=== PATIENT | male | born 1970 | race Hispanic/Latino ===

== ENCOUNTER 2017-04-08 20:47 | Emergency (ER) | payer SELFPAY ==
[2017-04-08] MEDS ORDERED: Sodium Chloride 0.9% 1,000 ML IV ONE (21:12)
[2017-04-08] MEDS ORDERED: Ketorolac 30 MG/ML SDV IVPUSH ONE (21:14)
--- NOTE | 2017-04-08 21:23 | EDM.PDOC ---
ED HPI GENERAL MEDICAL PROBLEM - General Chief Complaint: Abdominal Pain Stated Complaint: PT HAS STOMACH PAINS Time Seen by Provider: 04/08/17 21:20 Source of Information: Reports: Patient History Limitations: Reports: No Limitations - History of Present Illness INITIAL COMMENTS - FREE TEXT/NARRATIVE: History of present illness: 46-year-old male comes in complaining of bilateral lower back pain. Patient denies trauma and/or any injury indicates that he has had increasing difficulty with voiding and he feels like he is forcing the urine stream again some nature of an obstruction. Patient is somewhat of a poor historian and is unable to indicate whether or not he has had his appendix and/or gallbladder removed. Review of systems: As per history of present illness and below otherwise all systems reviewed and negative. Past medical history: As per history of present illness and as reviewed below otherwise noncontributory. Surgical history: As per history of present illness and as reviewed below otherwise noncontributory. Social history: No reported history of drug or alcohol abuse. Family history: As per history of present illness and as reviewed below otherwise noncontributory. Physical exam: HEENT: Atraumatic, normocephalic, pupils reactive, negative for conjunctival pallor or scleral icterus, mucous membranes moist, throat clear, neck supple, nontender, trachea midline. Lungs: Lung sounds diminished throughout otherwise breath sounds are equal bilaterally, chest nontender. Heart: S1S2, regular, negative for clicks, rubs, or JVD. Abdomen: Protuberant distended slightly firm and nonspecifically tender. Negative for masses or hepatosplenomegaly. Positive for costovertebral tenderness. Pelvis: Stable nontender. Genitourinary: Deferred. Rectal: Deferred. Extremities: Atraumatic, negative for cords or calf pain. Neurovascular unremarkable. Neuro: Awake, alert, oriented. Cranial nerves II through XII unremarkable. Cerebellum unremarkable. Motor and sensory unremarkable throughout. Exam nonfocal. Diagnostics: [CT of abdomen without contrast CBC, CMP, UA] Therapeutics: [IV fluid, Toradol, Zofran] Impression: [Right lower lobe pneumonia, back pain, UTI] Plan: [Levaquin, culture urine, follow up with PCP] Definitive disposition and diagnosis as appropriate pending reevaluation and review of above. abdomen Pain Score (Numeric/FACES): 9 - Related Data Allergies Allergy/AdvReac Type Severity Reaction Status Date / Time No Known Allergies Allergy Verified 04/08/17 20:54 Home Meds: Home Meds . [No Known Home Meds] 04/08/17 [History] Past Medical History - Past Health History Medical/Surgical History: Denies Medical/Surgical History Social & Family History - Family History Family Medical History: Noncontributory - Tobacco Use Smoking Status *Q: Never Smoker - Caffeine Use Caffeine Use: Reports: Coffee Caffeine Use Comment: occasional - Recreational Drug Use Recreational Drug Use: No ED ROS GENERAL - Review of Systems Review Of Systems: See Below (See history of present illness) ED EXAM, GI/ABD - Physical Exam Exam: See Below (See history of present illness) Course - Vital Signs Last Recorded V/S: Last Vital Signs Temp 37.3 C 04/08/17 20:55 Pulse 104 H 04/08/17 20:55 Resp 18 04/08/17 20:55 BP 180/105 H 04/08/17 20:55 Pulse Ox 95 04/08/17 20:55 - Orders/Labs/Meds Orders: Active Orders 24 hr Category Date Time Status Abdomen Pelvis wo Cont [CT] Stat Exams 04/08/17 21:09 Ordered Chest 2V [CR] Stat Exams 04/08/17 21:30 Ordered CULTURE URINE [RM] Stat Lab 04/08/17 21:51 Uncollected Labs: Laboratory Tests 04/08/17 04/08/17 04/08/17 Range/Units 21:10 21:10 21:15 WBC 9.28 (4.0-11.0) K/uL RBC 5.26 (4.50-5.90) M/uL Hgb 15.4 (13.0-17.0) g/dL Hct 44.1 (38.0-50.0) % MCV 83.8 (80.0-98.0) fL MCH 29.3 (27.0-32.0) pg MCHC 34.9 (31.0-37.0) g/dL RDW Std Deviation 40.6 (28.0-62.0) fl RDW Coeff of Kai 13 (11.0-15.0) % Plt Count 196 (150-400) K/uL MPV 10.70 (7.40-12.00) fL Neut % (Auto) 71.3 (48.0-80.0) % Lymph % (Auto) 18.5 (16.0-40.0) % Turner % (Auto) 9.1 (0.0-15.0) % Eos % (Auto) 1.0 (0.0-7.0) % Baso % (Auto) 0.1 (0.0-1.5) % Neut # (Auto) 6.6 H (1.4-5.7) K/uL Lymph # (Auto) 1.7 (0.6-2.4) K/uL Turner # (Auto) 0.8 (0.0-0.8) K/uL Eos # (Auto) 0.1 (0.0-0.7) K/uL Baso # (Auto) 0.0 (0.0-0.1) K/uL Nucleated RBC % 0.0 /100WBC Nucleated RBCs # 0 K/uL Sodium 137 (136-146) mmol/L Potassium 4.2 (3.5-5.1) mmol/L Chloride 105 (98-110) mmol/L Carbon Dioxide 21 (21-31) mmol/L BUN 16 (6.0-23.0) mg/dL Creatinine 1.2 (0.6-1.5) mg/dL Est Cr Clr Drug Dosing 70.15 mL/min Estimated GFR (MDRD) > 60.0 ml/min Glucose 103 (60-110) mg/dL Calcium 9.4 (8.8-10.8) mg/dL Total Bilirubin 1.0 (0.1-1.5) mg/dL AST 14 (5-40) IU/L ALT 23 (8-54) IU/L Alkaline Phosphatase 99 (40-150) Total Protein 8.3 H (6.0-8.0) g/dL Albumin 4.1 (3.5-5.0) g/dL Globulin 4.2 H (2.0-3.5) g/dL Albumin/Globulin Ratio 1.0 L (1.3-2.8) Urine Color YELLOW Urine Appearance CLEAR Urine pH 6.0 (5.0-8.0) Ur Specific Ke[place] >= 1.030 (1.001-1.035) Urine Protein 30 (NEGATIVE) mg/dL Urine Glucose (UA) NEGATIVE (NEGATIVE) mg/dL Urine Ketones NEGATIVE (NEGATIVE) mg/dL Urine Occult Blood LARGE H (NEGATIVE) Urine Nitrite NEGATIVE (NEGATIVE) Urine Bilirubin SMALL H (NEGATIVE) Urine Ictotest NEGATIVE Urine Urobilinogen 2.0 H (<2.0) EU/dL Ur Leukocyte Esterase TRACE (NEGATIVE) Urine RBC 1-3 (0-2/HPF) Urine WBC 8-15 (0-5/HPF) Ur Epithelial Cells RARE (NONE-FEW) Urine Bacteria FEW (NEGATIVE) Urine Mucus MODERATE (NONE-MOD) Meds: Medications Discontinued Medications Generic Name Dose Route Start Last Admin Trade Name Teresa PRN Reason Stop Dose Admin Sodium Chloride 1,000 mls @ 999 mls/hr 04/08/17 21:12 04/08/17 21:18 Normal Saline IV 04/08/17 22:12 999 mls/hr STAT ONE Administration Ketorolac Tromethamine 30 mg 04/08/17 21:14 04/08/17 21:19 Toradol IVPUSH 04/08/17 21:15 30 mg ONETIME ONE Administration Ondansetron HCl 4 mg 04/08/17 21:25 Zofran IVPUSH 04/08/17 21:26 ONETIME ONE Departure - Departure Time of Disposition: 22:17 Disposition: Home, Self-Care 01 Condition: Good Clinical Impression: Pneumonia, Back pain - Discharge Information Forms: ED Department Discharge Additional Instructions: The following information is given to patients seen in the emergency department who are being discharged to home. This information is to outline your options for follow-up care. We provide all patients seen in our emergency department with a follow-up referral. The need for follow-up, as well as the timing and circumstances, are variable depending upon the specifics of your emergency department visit. If you don't have a primary care physician on staff, we will provide you with a referral. We always advise you to contact your personal physician following an emergency department visit to inform them of the circumstance of the visit and for follow-up with them and/or the need for any referrals to a consulting specialist. The emergency department will also refer you to a specialist when appropriate. This referral assures that you have the opportunity for follow-up care with a specialist. All of these measure are taken in an effort to provide you with optimal care, which includes your follow-up. Under all circumstances we always encourage you to contact your private physician who remains a resource for coordinating your care. When calling for follow-up care, please make the office aware that this follow-up is from your recent emergency room visit. If for any reason you are refused follow-up, please contact the [facility] Emergency Department at and asked to speak to the emergency department charge nurse. Take medication as directed Follow-up with PCP 1-2 days Return to ED as needed as discussed [facility] [address] [place] [id number] - My Orders Last 24 Hours: My Active Orders 04/08/17 21:09 Abdomen Pelvis wo Cont [CT] Stat 04/08/17 21:30 Chest 2V [CR] Stat 04/08/17 21:51 CULTURE URINE [RM] Stat - Assessment/Plan Last 24 Hours: My Active Orders 04/08/17 21:09 Abdomen Pelvis wo Cont [CT] Stat 04/08/17 21:30 Chest 2V [CR] Stat 04/08/17 21:51 CULTURE URINE [RM] Stat
[2017-04-08] MEDS ORDERED: Ondansetron 4 MG/2 ML SDV IVPUSH ONE (21:25)
[2017-04-08 21:40] LABS: CHLORIDE,CL 105 mmol/L (98-110); SODIUM,NA 137 mmol/L (136-146)
[2017-04-09 03:40] VITALS: BP 137/88
--- NOTE | 2017-04-10 16:05 | CR ---
EXAM DATE: 04/08/17 PATIENT'S AGE: 46 Patient: BRAYDEN BOWER Facility: [place], [place] Site . Site : 1970 Study: XRay Chest [id number]/1/2017 9:42:48 PM Ordering Physician: Doctor Kendall Final Report: CLINICAL INDICATION: Right posterior chest pain for 3 days. Fatigued with activity. Findings : There is pleural-based alveolar infiltrate within the right lower lobe consistent with pneumonia. The left lung is clear. The heart is normal in size. The pulmonary vasculature and pleural surfaces are unremarkable. Impression: There is an alveolar infiltrate within the right lower lobe consistent with pneumonia. Radiographic followup to total resolution is recommended. Dictated by Pavan Benitez MD @ Apr 08 2017 10:01PM (Electronic Signature) Report Signed by Proxy. SNEHA
--- NOTE | 2017-04-10 16:05 | CT ---
EXAM DATE: 04/08/17 PATIENT'S AGE: 46 Patient: BRAYDEN BOWER Facility: [place], [place] Site . Site : 1970 Study: CT Abdomen/Pelvis [id number]/1/2017 9:52:30 PM Ordering Physician: Doctor Kendall Final Report: Clinical indication : Right flank pain 3 days. Technique: Axial noncontrast CT cuts were performed from above the diaphragm to the ischial tuberosities. Findings: There is an incompletely visualized pleural-based alveolar infiltrate within the right lower lobe that most likely represents pneumonia. There are no renal, ureteral or bladder calculi. There is no hydronephrosis. The urinary bladder, seminal vesicles and prostate gland appear normal. There is moderate diffuse fatty infiltration of the liver. The spleen pancreas and adrenal glands appear normal. There is no free intraperitoneal air or fluid. The colon and small bowel appear normal. The appendix is not inflamed. There are no enlarged retroperitoneal, mesenteric, iliac or inguinal lymph nodes. Impression: 1. There is an incompletely visualized pleural-based alveolar infiltrate within the right lower lobe that most likely represents pneumonia. If there is clinical suspicion of pulmonary embolism, PE protocol chest CT is suggested. 2. Moderate fatty infiltration of the liver. 3. Negative for urinary tract calculi. Please note that all CT scans at this facility use dose modulation, iterative reconstruction, and/or weight-based dosing when appropriate to reduce radiation dose to as low as reasonably achievable. Dictated by Pavan Benitez MD @ Apr 08 2017 10:18PM (Electronic Signature) Report Signed by Proxy. SNEHA
== END 2017-04-08 22:33 | disposition home or self-care (01) ==
LOC: MW.ED 20:47
DX: J18.9 Pneumonia, unspecified organism (principal); M54.5 Low back pain; N39.0 Urinary tract infection, site not specified
CPT/HCPCS: 71020; 74176; 80053; 81001; 85025; 87086; 96361; 96374; 96375; 99284; J1885; J2405; J7040; 99283